=== PATIENT | male | born 1965 | race Two or more races ===

== ENCOUNTER 2016-09-06 10:00 | Day surgery (SDC) | payer OTHER ==
[2016-09-06] VITALS (13 sets, daily range): BP systolic 122–137; BP diastolic 75–82; PULSE 58–77; RESP 14–27; Ht 167.6 cm; Wt 76.0 kg
[~2016-09-06] VITALS: Ht 167.6 cm; Wt 76.0 kg
[~2016-09-06 10:00] MED LIST: CEFAZOLIN 1 GM INJ ONE
--- NOTE | 2016-09-06 10:55 | RADRPT ---
PROCEDURE: XR Chest. CLINICAL INDICATION: pre op TECHNIQUE: PA and Lateral views of the chest were obtained. COMPARISON: None. FINDINGS: The cardiomediastinal silhouette is within normal limits. The lungs are clear. No signs of pleural f luid or pneumothorax are seen. The osseous structures and soft tissues are unremarkable. IMPRESSION: No evidence for active cardiopulmonary disease. RPTAT: PP Physician Chhaya Date Time Electronically viewed and signed by Leann Reynoso Physician on 09/06/2016 10:54 RC/
[2016-09-06] MEDS ORDERED: BUPIVACAINE 0.25% (MPF) 30 ML INJ ONE (12:26)
--- NOTE | 2016-09-06 12:27 | HPN ---
Date/Time of Note Date/Time of Note DATE: 09/06/16 TIME: 12:27 Interval H&P Admission Note Pt. seen H&P reviewed: No system changes WINNIE ANTON MD Sep 06, 2016 12:27
[2016-09-06] MEDS ORDERED: PROPOFOL 20 ML ONE (12:28)
[2016-09-06] MEDS ORDERED: LIDOCAINE 2% (SDV) 5 ML INJ ONE (12:28)
[2016-09-06] MEDS ORDERED: FENTAnyl 50 MCG/ML VIAL ONE (12:28)
[2016-09-06] MEDS ORDERED: ROCURONIUM 50 MG INJ ONE (12:28)
[2016-09-06] MEDS ORDERED: DEXAMETHASONE 4 MG/ML 1 ML INJ ONE (12:37)
[2016-09-06] MEDS ORDERED: BUPIVACAINE 0.5% (SDV) 30 ML INJ ONE (12:58)
[2016-09-06] MEDS ORDERED: ONDANSETRON 4 MG INJ IV PRN (13:00)
[2016-09-06] MEDS ORDERED: LABETALOL HCL 20MG INJ IV PRN (13:00)
[2016-09-06] MEDS ORDERED: MEPERIDINE 25 MG INJ IV PRN (13:00)
[2016-09-06] MEDS ORDERED: DIPHENHYDRAMINE 50 MG INJ IV PRN (13:00)
[2016-09-06] MEDS ORDERED: EPHEDrine SULFATE 50 MG/5 ML SYG IV PRN (13:00)
[2016-09-06] MEDS ORDERED: HYDROmorphONE (0.2 MG/ML) 10ML SYG IV PRN ×3 (13:00)
[2016-09-06] MEDS ORDERED: OXYCODONE/ACETAMINOPHEN (5/325) TAB PO PRN ×2 (13:00)
[2016-09-06] MEDS ORDERED: FENTAnyl 50 MCG/ML VIAL IV PRN ×3 (13:00)
[2016-09-06] MEDS ORDERED: hydrALAzine 20 MG INJ IV PRN (13:00)
[2016-09-06] MEDS ORDERED: GLYCOPYRROLATE 0.4 MG INJ ONE (13:08)
[2016-09-06] MEDS ORDERED: NEOSTIGMINE 3 MG/3 ML SYRINGE ONE (13:08)
[2016-09-06] MEDS ORDERED: KETOROLAC 30 MG INJ ONE (13:10)
--- NOTE | 2016-09-06 13:24 | OPR ---
Date/Time of Note Date/Time of Note DATE: 09/06/16 TIME: 13:20 Operative Report Procedure Date: Sep 06, 2016 Preoperative Diagnosis Phimosis Postoperative Diagnosis Phimosis Operation Performed Circumcision Surgeon: WINNIE ANTON MD Anesthesia: general Anesthesiologist: MARTIR JUAREZ Estimated Blood Loss: minimal Specimens Foreskin Complications: None Pt Condition Post Procedure: stable Indications Phimosis and balanitis Operative\Procedure Findings Phimosis and balanitis Procedure Description The patient was brought to the operating room. Time out was done. The patient was identified by his name, date and the procedure. Patient was given 2 g of Ancef IV at the start of the procedure. They hair around the base of the penis was shaved. The genital area was then prepped and draped in usual sterile manner. The foreskin at the level of the ace was marked then incised. The foreskin was then retracted and another incision was made half a centimeter proximal to the ace. The skin between the 2 incisions was removed. All the bleeders were electrocoagulated and good hemostasis was obtained. The subcutaneous tissue was approximated with 3-0 Vicryl interrupted sutures at the 9,12, 3 and 6 o'clock position. The incision was then closed with 3-0 Vicryl interrupted sutures. Then the patient was injected with half percent Marcaine around the base of the penis for local anesthesia. The incision was then covered was a Vaseline gauze and a Ace. Patient was transferred to the recovery room in stable and satisfactory condition. WINNIE ANTON MD Sep 06, 2016 13:24
[2016-09-06] MEDS ORDERED: HYDROCODONE/APAP (5/325) TAB PO PRN (13:30)
== END 2016-09-06 15:46 | disposition home or self-care (01) ==
LOC: SDS 10:00
PROVIDERS: ATTEND Urology
DX: N47.1 Phimosis (principal); N48.0 Leukoplakia of penis
CPT/HCPCS: 54161; 71010; J0690; J1100; J1885; J2710; J3010; 88304